=== PATIENT | female | born 1995 | race Caucasian/White ===

== ENCOUNTER 2022-01-04 17:23 | Emergency (ER) | payer MEDICAID, SELFPAY ==
[2022-01-04 17:26] VITALS: BP 136/79; PULSE 102; RESP 16; TEMP 36.4; O2SAT 98; BMI 37.6
--- NOTE | 2022-01-04 17:59 | ED.EYEPROB ---
HPI - Eye Problem General Chief complaint: Eye Problems Stated complaint: Scratch on Eye Time Seen by Provider: 01/04/22 17:27 History of Present Illness HPI Narrative: This 26-year-old female comes in reporting an injury to her right eye that occurred 2 days ago. She states that her cat scratched the lateral aspect of her right eyeball in the school air a of the eye. She states that she called the nurse line and was instructed to come in here for evaluation. She does report a small amount of crusting along her eyelids when she wakes in the morning. She does not have much discomfort or tearing and has no visual changes. Related Data Home Medications Medication Instructions Recorded Confirmed bupropion HCl 150 mg 24 hr tablet, 150 mg PO DAILY 01/04/22 01/04/22 extended release dextroamphetamine-amphetamine 20 20 mg PO DAILY 01/04/22 01/04/22 mg tablet dextroamphetamine-amphetamine ER 30 mg PO DAILY 01/04/22 01/04/22 30 mg 24hr capsule,extend release (Adderall XR) Previous Rx's Medication Instructions Recorded polymyxin B sulfate 10,000 1 drp ophthalmic (eye) Q3H 7 days 01/04/22 unit-trimethoprim 1 mg/mL eye #10 mL drops (Polytrim) Allergies Allergy/AdvReac Type Severity Reaction Status Date / Time Sulfa (Sulfonamide Allergy Rash Verified 01/04/22 17:32 Antibiotics) Review of Systems Status of ROS: Reports: 10 or more systems reviewed and unremarkable except as noted in History and below Narrative: Constitutional: No fevers, no weight gain or loss. Eyes: No vision changes. Right eye injury as described above. HENT: No congestion, no sore throat, no ear pain. Cardiovascular: No chest pain, no palpitations. Respiratory: No shortness of breath, no wheezes, no cough. Gastrointestinal: No abdominal pain, no vomiting, no diarrhea. Genitourinary: No dysuria, no hematuria. Musculoskeletal: Normal range of motion. Skin: No rashes, no pruritis. Neurological: No dizziness, weakness, sensory change, speech change. Endo/Heme/Allergies: No bruising or bleeding. No polydipsia. Pysch: no suicidality, no anxiety, no insomnia. All other systems reviewed and are negative. Exam Narrative: Exam Narrative: Constitutional: Well-developed, well-nourished, no acute distress. HEENT: Normocephalic, atraumatic. Right eye has some erythema on the lateral aspect of the sclera. I did examine the eye under magnification and there is no obvious defect of the sclera other than some erythema. Neck: Normal range of motion. Nontender. Supple. Heart: Intact distal pulses. Lungs: No chest discomfort. No wheezes, rhonchi, or rales. Abdomen: Nontender. Back: Normal range of motion. Extremities: Normal range of motion. No injury. Skin: Intact. No rash. Warm. No erythema or pallor. Neurologic: No altered sensation. No weakness. Alert and oriented. Psychiatric: No suicidality. No anxiety or depression. No insomnia. Nursing notes and vitals signs are reviewed. Const: Vital Signs, click to edit/add: Vital Signs - 24 hr 01/04/22 17:26 Temperature 97.5 F L Pulse Rate [Right Pulse Oximeter] 102 H Respiratory Rate 16 Blood Pressure [Ri ght Upper Arm] 136/79 Pulse Oximetry 98 Oxygen Delivery Me thod Room Air Course Vital Signs Vital signs: Initial Vital Signs Temperature 97.5 F L 01/04/22 17:26 Temperature Source Temporal Artery Scan 01/04/22 17:26 Pulse Rate 102 H 01/04/22 17:26 Respiratory Rate 16 01/04/22 17:26 Blood Pressure 136/79 01/04/22 17:26 Blood Pressure Mean 98 01/04/22 17:26 Blood Pressure Position Sitting 01/04/22 17:26 Pulse Oximetry 98 01/04/22 17:26 Oxygen Delivery Method 01/04/22 17:26 Vital Signs Temperature 97.5 F L 01/04/22 17:26 Pulse Rate 102 H 01/04/22 17:26 Respiratory Rate 16 01/04/22 17:26 Blood Pressure 136/79 01/04/22 17:26 Pulse Oximetry 98 01/04/22 17:26 Oxygen Delivery Method 01/04/22 17:26 Temperature 97.5 F L 01/04/22 17:26 Pulse Rate 102 H 01/04/22 17:26 Respiratory Rate 16 01/04/22 17:26 Blood Pressure 136/79 01/04/22 17:26 Pulse Oximetry 98 01/04/22 17:26 Oxygen Delivery Method 01/04/22 17:26 MDM - Eye Problem MDM Narrative Medical decision making narrative: This patient comes in with an injury to the sclera on the lateral aspect of the right eye. This appears to be healing properly. There is currently no sign of infection or complication from this injury. The patient does report some crusting of her eyelid and eyelashes when wakening in the morning so I did prescribe Polytrim. Discharge Plan Discharge Clinical Impression: Eye injury Patient Disposition: Home, Self-Care Condition: Stable Additional Instructions: Take medication as indicated. Follow up with MD or return if worsening. Prescriptions: New polymyxin B sulf-trimethoprim [Polytrim] 10,000 unit- 1 mg/mL drops 1 drp ophthalmic (eye) Q3H 7 Days Qty: 10 0RF Rx Instructions: while awake; do not exceed 6 doses in 24 hours No Action bupropion HCl 150 mg tablet extended release 24 hr 150 mg PO DAILY Label Comments: TAKE 1 TABLET BY MOUTH EVERY DAY IN THE MORNING dextroamphetamine-amphetamine [Adderall XR] 30 mg capsule,extended release 24hr 30 mg PO DAILY Label Comments: TAKE 1 CAPSULE BY MOUTH DAILY. *FILL ON OR AFTER 12/27/21 dextroamphetamine-amphetamine 20 mg tablet 20 mg PO DAILY Label Comments: TAKE 1 TABLET BY MOUTH DAILY. *FILL ON OR AFTER 12/24/21 Follow Up/Referrals: Provider,Not a Local [Primary Care Provider] - Stand Alone Forms: [employer] Info Instructions
== END 2022-01-04 18:17 | disposition home or self-care (01) ==
PROVIDERS: Emergency Provider Emergency Medicine Emergency Medical Services
DX: S05.91XA Unspecified injury of right eye and orbit, initial encounter (principal); W55.03XA Scratched by cat, initial encounter
CPT/HCPCS: 99283; 99284

== ENCOUNTER 2023-12-14 21:12 | Emergency (ER) | payer MEDICAID, SELFPAY ==
[2023-12-14 21:19] VITALS: BP 111/75; PULSE 95; RESP 16; TEMP 36.1; O2SAT 97; BMI 36.2
--- NOTE | 2023-12-14 21:39 | ED.GENADULT ---
HPI - General Adult General Chief complaint: Nausea/Vomiting Stated complaint: dehydrated/vomiting Time Seen by Provider: 12/14/23 21:14 Source: patient Mode of arrival: ambulatory Limitations: no limitations History of Present Illness HPI narrative: 28-year-old female presenting today with vomiting. Patient states she has had cyclic vomiting for the last 3 years. It comes out of nowhere in can last an entire 24 hours. She states it has happened 3 times now in the last 2 weeks. She was told in the past that it could be her gallbladder so she had her gallbladder removed it did not help. Patient denies any fevers or chills. She denies abdominal pain. She denies being . She denies any unintentional weight loss. Patient takes Adderall, bupropion and just started on will go be this summer which she feels did not make her vomiting worse. Patient does use marijuana regularly. States that no one has ever told her that marijuana can cause vomiting. Patient does have Zofran at home, states that it does not work. Related Data Home Medications ?Medication ?Instructions ?Recorded ?Confirmed bupropion HCl 150 mg 24 hr tablet, 150 mg PO DAILY 01/04/22 01/04/22 extended release dextroamphetamine-amphetamine 20 20 mg PO DAILY 01/04/22 01/04/22 mg tablet dextroamphetamine-amphetamine ER 30 mg PO DAILY 01/04/22 01/04/22 30 mg 24hr capsule,extend release (Adderall XR) Previous Rx's ?Medication ?Instructions ?Recorded polymyxin B sulfate 10,000 1 drp ophthalmic (eye) Q3H 7 days 01/04/22 unit-trimethoprim 1 mg/mL eye #10 mL drops (Polytrim) Allergies Allergy/AdvReac Type Severity Reaction Status Date / Time Sulfa (Sulfonamide Allergy Rash Verified 01/04/22 17:32 Antibiotics) Review of Systems Status of ROS: Reports: 10 or more systems reviewed and unremarkable except as noted in History and below Exam Narrative: Exam Narrative: Well-nourished well-developed patient in no acute distress. Alert and oriented. Answers questions appropriately. Mood and affect are appropriate. Thoughts are goal oriented and rational. No tangential or magical thinking noted. Patient speaks in full sentences without needing to catch her breath. Patient is a bit disheveled. HEENT: Normocephalic atraumatic. Mild acne. Pupils are equally round reactive to light. Extraocular muscles are intact. Conjunctivae are moist without any icterus noted. Moist mucous membranes. Cardiovascular: Heart is regular rate and rhythm S1 and S2 are present without any murmurs. Lungs: Clear to auscultation bilaterally no wheezes rhonchi or rales are appreciated. Patient takes deep breaths without any discomfort. Abdomen: Soft and nontender nondistended with normal bowel sounds. Extremities: Bilateral lower extremities are without edema. Skin: Well perfused. Const: Vital Signs, click to edit/add: Vital Signs - 24 hr 12/14/23 21:19 Temperature 97.0 F L Pulse Rate [Left P ulse Oximeter] 95 Respiratory Rate 16 Blood Pressure [Ri ght Upper Arm] 111/75 Pulse Oximetry 97 Oxygen Delivery Me thod Room Air Course Course ED Course: IV is established and we start the patient on IV fluids and droperidol. Chemistries and test are both unremarkable. Patient had no vomiting or dry heaving while she was here. Ready to be discharged home. Vital Signs Vital signs: Initial Vital Signs Temperature 97.0 F L 12/14/23 21:19 Temperature Source Temporal Artery Scan 12/14/23 21:19 Pulse Rate 95 12/14/23 21:19 Pulse Rhythm Regular 12/14/23 21:19 Respiratory Rate 16 12/14/23 21:19 Blood Pressure 111/75 12/14/23 21:19 Blood Pressure Mean 87 12/14/23 21:19 Blood Pressure Position Sitting 12/14/23 21:19 Pulse Oximetry 97 12/14/23 21:19 Oxygen Delivery Method Room Air 12/14/23 21:19 Vital Signs Temperature 97.0 F L 12/14/23 21:19 Pulse Rate 95 12/14/23 21:19 Respiratory Rate 16 12/14/23 21:19 Blood Pressure 111/75 12/14/23 21:19 Pulse Oximetry 97 12/14/23 21:19 Oxygen Delivery Method Room Air 12/14/23 21:19 Temperature 97.0 F L 12/14/23 21:19 Pulse Rate 95 12/14/23 21:19 Respiratory Rate 16 12/14/23 21:19 Blood Pressure 111/75 12/14/23 21:19 Pulse Oximetry 97 12/14/23 21:19 Oxygen Delivery Method Room Air 12/14/23 21:19 Medications Administered Medications: Discontinued Medications Generic Name Dose Route Start Last Admin Trade Name Lisa PRN Reason Stop Dose Admin Droperidol 1.25 mg 12/14/23 21:35 12/14/23 22:03 Droperidol 2.5 Mg/Ml Inj IV 12/14/23 21:36 1.25 mg ONCE ONE Administration Sodium Chloride 1,000 mls @ 1,000 mls/hr 12/14/23 21:45 12/14/23 23:12 0.9 % Sodium Chloride 1000 Ml IV 12/14/23 22:44 Infused .Q1H KATERINE Infusion Medical Decision Making MDM Narrative Medical decision making narrative: 28-year-old female with cyclic vomiting. We discussed stopping all marijuana use. Follow-up as needed. Lab Data Lab results reviewed: Yes I reviewed the patient's lab results Labs: Lab Results 12/14/23 Range/Units 21:45 Sodium 138 (135-149) mmol/L Potassium 3.6 (3.6-5.1) mmol/L Chloride 104 (96-114) mmol/L Carbon Dioxide 25 (20-32) mmol/L Anion Gap 9 (7-15) mEq/L BUN 10 (5-24) mg/dL Creatinine 0.7 (0.5-1.5) mg/dL Estimated Creat Clear 115.32 Estimated GFR 120 ml/min Glucose 106 (60-115) mg/dL Calcium 9.4 (8.4-10.6) mg/dL HCG, Qual Negative (Negative) Discharge Plan Discharge Clinical Impression: Cyclic vomiting syndrome Patient Disposition: Home, Self-Care Condition: Stable Instructions: Acute Nausea and Vomiting (ED) Additional Instructions: Recurrent vomiting is often caused by marijuana use. Vomiting can continue for a few months after marijuana use has stopped. Recommend stopping all marijuana use at this time. Follow-up with your primary care provider as needed. Prescriptions: No Action bupropion HCl 150 mg tablet extended release 24 hr 150 mg PO DAILY Patient Comments: TAKE 1 TABLET BY MOUTH EVERY DAY IN THE MORNING dextroamphetamine-amphetamine [Adderall XR] 30 mg capsule,extended release 24hr 30 mg PO DAILY Patient Comments: TAKE 1 CAPSULE BY MOUTH DAILY. *FILL ON OR AFTER 12/27/21 dextroamphetamine-amphetamine 20 mg tablet 20 mg PO DAILY Patient Comments: TAKE 1 TABLET BY MOUTH DAILY. *FILL ON OR AFTER 12/24/21 polymyxin B sulf-trimethoprim [Polytrim] 10,000 unit- 1 mg/mL drops 1 drp ophthalmic (eye) Q3H 7 Days Qty: 10 0RF Rx Instructions: while awake; do not exceed 6 doses in 24 hours Follow Up/Referrals: Provider,Not a Local [Non-Staff] - Stand Alone Forms: MyHealth Info Instructions
[2023-12-14] MEDS: 0.9 % SODIUM CHLORIDE 1000 ml 1,000 ML IV (22:03)
[2023-12-14] MEDS: droperidoL 2.5 MG/ML inj 1.25 MG IV (22:03)
[2023-12-14 22:05] LABS: Chloride* 104 mmol/L (96-114); Potassium* 3.6 mmol/L (3.6-5.1); Sodium* 138 mmol/L (135-149)
[2023-12-14 22:08] LABS: Anion Gap 9 mEq/L (7-15); Blood Urea Nitrogen* 10 mg/dL (5-24); Carbon Dioxide* 25 mmol/L (20-32); Creatinine* 0.7 mg/dL (0.5-1.5); Est. Creatinine Clearance* 115.32; Estimated Glomerular Filt Rate 120 ml/min
[2023-12-14 22:09] LABS: Calcium* 9.4 mg/dL (8.4-10.6); Glucose* 106 mg/dL (60-115)
[2023-12-14 22:15] LABS: HCG Qualitative Serum* Negative (Negative)
== END 2023-12-14 23:19 | disposition home or self-care (01) ==
PROVIDERS: Emergency Provider Family Medicine; PCP Physician Assistant
DX: R11.15 Cyclical vomiting syndrome unrelated to migraine (principal)
CPT/HCPCS: 36415; 80048; 84703; 96361; 96374; 99284; J1790; J7030